=== PATIENT | female | born 1970 | race Caucasian/White ===

== ENCOUNTER 2017-10-05 16:38 | Emergency (ER) | payer BC, OTHER ==
[~2017-10-05] VITALS: Ht 165.1 cm; Wt 93.9 kg
[~2017-10-05 16:38] MED LIST: FLUO10CA13 PO; HYDR473S47 PO; multivitamin PO
[2017-10-05 16:43] VITALS: BP 142/100
[2017-10-05] MEDS ORDERED: ONDANSETRON ODT 4 MG ONE (17:01)
[2017-10-05] MEDS ORDERED: OXYcodone/APAP 5/325MG TABLET ONE (17:01)
[2017-10-05] MEDS ORDERED: LORazepam 1MG TABLET ONE (17:46)
[2017-10-05] MEDS ORDERED: LORazepam 1MG TABLET PO ONE (18:00)
[2017-10-05] MEDS ORDERED: OXYcodone/APAP 5/325MG TABLET PO ONE (18:00)
[2017-10-05] MEDS ORDERED: ONDANSETRON ODT 4 MG PO ONE (18:00)
== END 2017-10-05 19:01 | disposition home or self-care (01) ==
LOC: ED 17:49
DX: S52.572A Other intraarticular fracture of lower end of left radius, initial encounter for closed fracture (principal); W19.XXXA Unspecified fall, initial encounter; Y93.01 Activity, walking, marching and hiking; Y92.69 Other specified industrial and construction area as the place of occurrence of the external cause; Y99.8 Other external cause status
CPT/HCPCS: 29125; 73080; 73110; 99284; Q0162